=== PATIENT | female | born 1945 | race Caucasian/White ===

== ENCOUNTER → 2020-06-25 | Day surgery (SDC) | payer MEDICARE, OTHER ==
[~2020-06-25] MED LIST: ASPIRIN81 MG PO; COQ1050 MG PO; FAMOTIDINE10 MG PO; FENTANYL CITRATE/PF 100MCG/2 ML INJ ONE; FLONASE ALLERG9.9 ML INH; FLUOXETINE HCL20 MG PO; LATANOPROST2.5 ML OU; LEVOTHYROXINE112 MCG PO; LIPITOR20 MG PO; MAGNESIUM CITR100 MG PO; MELATONIN3 MG PO; MIDAZOLAM HCL 2 MG/2 ML VIAL ONE; OR PHACO EYE KIT ONE; POTASSIUM CITR10 MEQ PO; PREOP PHACO EYE KIT ONE; PRESERVISION T1 EACH PO; TRAZODONE HCL50 MG PO; TRIAMTERENE-HCTZ1 EA PO; VALTREX500 MG PO; VITAMIN C1000 MG PO; VITAMIN D31 ML PO; ZINC SULFATE220 M1 PO; ZYRTEC10 M3 PO; [UNRECOGNIZED DRUG - OTHER] PO
[2020-06-25 11:41] VITALS: BP 129/64
== END | disposition home or self-care (01) ==
LOC: OR 08:42
PROVIDERS: ATTEND Ophthalmology
DX: H25.11 Age-related nuclear cataract, right eye (principal); I25.10 Atherosclerotic heart disease of native coronary artery without angina pectoris; E03.9 Hypothyroidism, unspecified; I11.0 Hypertensive heart disease with heart failure; I50.9 Heart failure, unspecified; Z01.812 Encounter for preprocedural laboratory examination; Z88.2 Allergy status to sulfonamides; Z20.828 Contact with and (suspected) exposure to other viral communicable diseases; Z79.82 Long term (current) use of aspirin; Z87.01 Personal history of pneumonia (recurrent); Z95.0 Presence of cardiac pacemaker
CPT/HCPCS: 66984; J2250; J3010; U0002; V2632

== ENCOUNTER → 2020-07-09 | Day surgery (SDC) | payer MEDICARE, OTHER ==
[2020-07-09 13:00] VITALS: BP 141/60
== END | disposition home or self-care (01) ==
LOC: OR 09:36
PROVIDERS: ATTEND Ophthalmology
DX: H25.12 Age-related nuclear cataract, left eye (principal); I10 Essential (primary) hypertension; Z82.49 Family history of ischemic heart disease and other diseases of the circulatory system; J32.9 Chronic sinusitis, unspecified; E03.9 Hypothyroidism, unspecified; Z88.2 Allergy status to sulfonamides; Z95.0 Presence of cardiac pacemaker; Z01.812 Encounter for preprocedural laboratory examination; Z20.828 Contact with and (suspected) exposure to other viral communicable diseases
CPT/HCPCS: 66984; U0002; V2632; J2250; J3010